=== PATIENT | female | born 1990 | race Two or more races ===

== ENCOUNTER 2018-11-24 01:00 | Observation (INO) | payer OTHER ==
[~2018-11-24] VITALS: Ht 152.4 cm; Wt 68.9 kg
[2018-11-24] MEDS ORDERED: CALC-1042 MT (01:41)
[2018-11-24] MEDS ORDERED: VIT1TABL86 MT (01:41)
[2018-11-24] MEDS ORDERED: PREN1TAB78 MT (01:41)
[2018-11-24] MEDS ORDERED: ACETAMINOPHEN 500MG TABLET PO SCH (02:00)
[2018-11-24] MEDS ORDERED: LACTATED RINGERS 1,000 ML IV SCH (02:00)
[2018-11-24 03:06] LABS: CLARITY URINE CLEAR (CLEAR); COLOR URINE YELLOW (YELLOW); KETONES URINE NEGATIVE (NEGATIVE); LEUKOCYTE ESTERASE URINE NEGATIVE (NEGATIVE); NITRITE URINE NEGATIVE (NEGATIVE); OCCULT BLOOD URINE NEGATIVE (NEGATIVE); PROTEIN URINE NEGATIVE (NEGATIVE); SPECIFIC GRAVITY URINE 1.008 (1.005-1.030); UROBILINOGEN URINE 0.2 E.U./dL (0.2-1.0)
[2018-11-24] MEDS ORDERED: TERBUTALINE SULFATE 1MG/ML VIAL SUBCUT PRN (05:15)
== END 2018-11-24 07:00 | disposition home or self-care (01) ==
LOC: 8 EST LDRP 01:00
PROVIDERS: ADMIT Specialist; ATTEND Specialist
DX: O26.893 Other specified pregnancy related conditions, third trimester (principal); R10.9 Unspecified abdominal pain; N80.9 Endometriosis, unspecified; Z3A.30 30 weeks gestation of pregnancy
CPT/HCPCS: 76700; 76805; 76818; 81003; 96372; 99281; G0378; J3105; 96360; J7120